=== PATIENT | female | born 1955 | race American Indian/Alaskan Native ===

== ENCOUNTER 2020-03-16 14:10 | Outpatient (CLI) | payer OTHER ==
--- NOTE | 2020-03-16 15:45 | Mammography Report ---
DIGITAL SCREENING MAMMOGRAM WITH CAD, 03/16/2020 INDICATION: Routine screening mammography. TECHNIQUE: Digital bilateral 2D mammography was obtained in the craniocaudal and mediolateral obliq ue projections. This examination was interpreted with the benefit of Computer-Aided Detection analysi s. COMPARISON: None available. FINDINGS: Breast Density: The breasts are heterogeneously dense, which may obscure small masses. A left upper outer asymmetry with calcifications requires additional imaging. There is no evidence of dominant mass, suspicious calcifications or architectural distortion in the right breast. IMPRESSION: Left asymmetry and calcifications requiring additional imaging. Recommend recall for left ML and spot magnification ML and CC views and left breast ultrasound if needed. Follow up recommendation: Special View: Mag Category 0: Incomplete. Needs additional imaging evaluation and/or prior mammograms for comparison. A "normal" or negative report should not discourage follow up or biopsy of a clinically significant f inding. A written summary of these findings will be mailed to the patient. The patient will be entered into a mammography reporting system which will generate a reminder letter for the patient's next appointmen t at the appropriate interval. The [employer] recommends yearly mammograms starting at age 40 and continuing as l nolan as a woman is in good health. Breast MRI is recommended for women with an approximate 20-25% or greater lifetime risk of breast cancer, including women with a strong family history of breast or ova stan cancer or who have been treated for Hodgkin's disease. Signer Name: Kip Smith MD Signed: 03/16/2020 3:40 PM Workstation Name: [id number]
== END 2020-03-16 14:11 | disposition home or self-care (01) ==
LOC: MAMMO 14:10
PROVIDERS: ATTEND Internal Medicine
DX: Z12.31 Encounter for screening mammogram for malignant neoplasm of breast (principal)
CPT/HCPCS: 77067